=== PATIENT | female | born 1975 | race Caucasian/White ===

== ENCOUNTER 2018-06-09 19:00 | Emergency (ER) | payer SELFPAY ==
[2018-06-09 20:38] VITALS: BP 98/77; PULSE 101; O2SAT 100
[2018-06-09] MEDS ORDERED: ULTRAM 50 MG PO ONE (20:48)
[2018-06-09] MEDS ORDERED: Augmentin 875-125 Tablet PO ONE (20:48)
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
[2018-06-09] MEDS ORDERED: Augmentin 875-125 Tablet ONE (20:59)
[2018-06-09] MEDS ORDERED: ULTRAM 50 MG ONE (20:59)
== END 2018-06-09 21:22 | disposition home or self-care (01) ==
LOC: ED 19:00
DX: K02.9 Dental caries, unspecified (principal)
CPT/HCPCS: 99283; A9270-GY